=== PATIENT | male | born 1940 | race Caucasian/White ===

== ENCOUNTER 2018-03-09 18:36 | Inpatient (IN) ==
[2018-03-09] MEDS ORDERED: SODIUM CHLORIDE 0.9% 500 ML IV STA (19:09)
[2018-03-09 19:26] LABS: Basophils % 0.4 % (0.0-0.8); Eosinophils # 0.1 10*3/uL (0.0-0.87); Eosinophils % 1.3 % (0.00-10.9); Hematocrit 34.3 VOL% (42.0-52.0); Hemoglobin 10.5 GM/DL (14.0-18.0); Immature Granulocytes % 0.3 %; Immature Granulocytes Absolute 0.02 #; Mean Corpuscular HGB Conc 30.6 GM/DL (32-36); Mean Corpuscular Hemoglobin 28 PG (27-34); Mean Corpuscular Volume 90.3 FL (87-102); Mean Platelet Volume 10.5 FL (9.6-12.0); Neutrophils # 4.8 10*3/uL (1.4-7.4); Platelet Count 165 T/CUMM (130-400); Red Cell Distribution Width 13.5 % (9.3-17.3); White Blood Count 6.8 T/CUMM (4-12)
[2018-03-09 19:36] LABS: INR 2.4
[2018-03-09 19:37] LABS: PT Patient Result 26.1 SECS
[2018-03-09 19:57] LABS: Alanine Aminotransferase 25 U/L (16-61); Albumin 3.4 G/DL (3.4-5.0); Alkaline Phosphatase 70 U/L (45-117); Aspartate Amino Transferase 35 U/L (0-37); Blood Urea Nitrogen 22 MG/DL (7-18); Calcium 8.9 MG/DL (8.5-10.1); Glucose 102 MG/DL (74-106); Osmolality,Calculated 272.1 MOS/KG (273-304); Potassium 5.1 MMOL/L (3.5-5.1); Prolactin 8.3 NG/ML; Sodium 135 MMOL/L (136-145); Total Protein 8.1 G/DL (6.4-8.3); Troponin I 0.032 NG/ML (0.00-0.045)
[2018-03-09 20:12] LABS: Apearance,Urine Slightly Hazy (Clear); Bilirubin,Urine Negative (Negative); Blood, Urine Moderate mg/dL (Negative); Glucose,Urine (UA) Negative (Negative); Ketones,Urine Negative (Negative); Mucus,Urine Occasional /LPF (Occasional); Nitrite,Urine Negative (Negative); Protein,Urine 30 MG/DL; RBC,Urine 4 /HPF (0-4); Squamous Epithelial Cell,Urine Occasional /HPF (0-10); Urine Specific Gravity 1.025 (1.001-1.035); WBC,Urine 2 /HPF (0-6)
[2018-03-09 20:13] LABS: Urine Color Dark yellow (Yellow)
[2018-03-09 20:29] LABS: Sedimentation Rate-Westergren 76 MM/HR (0-20)
[2018-03-09] MEDS ORDERED: cefTRIAXone 1,000 MG in SYRINGE 1 EACH IV SCH (20:30)
[2018-03-09] MEDS: PIPERACILLIN/TAZOBACTAM 3,375 MG in SODIUM CHLORIDE 0.9% 100 ML IV SCH (20:48)
[2018-03-09] MEDS ORDERED: ONDANSETRON 4 MG/2 ML VIAL IV PRN (21:15)
[2018-03-09] MEDS ORDERED: ALBUTEROL 2.5 MG/3 ML NEB RESP TX PRN (21:15)
[2018-03-09] MEDS ORDERED: ACETAMINOPHEN 325 MG TABLET PO PRN (21:15)
[2018-03-09] MEDS: DIGOXIN 0.125 MG TABLET PO SCH (23:34)
[2018-03-09] MEDS: ATORVASTATIN 10 MG TABLET PO SCH (23:35)
[2018-03-10] MEDS: ALBUTEROL/IPRATROPIUM 3 ML NEB RESP TX SCH ×4 (00:36→19:02)
[2018-03-10] MEDS ORDERED: PIPERACILLIN/TAZOBACTAM 3,375 MG in SODIUM CHLORIDE 0.9% 100 ML IV SCH (04:30)
[2018-03-10] MEDS: PIPERACILLIN/TAZOBACTAM 3,375 MG in SODIUM CHLORIDE 0.9% 100 ML IV SCH ×3 (05:18→20:22)
[2018-03-10] MEDS: LEVOTHYROXINE 112 MCG TABLET PO SCH (05:18)
[2018-03-10 06:06] LABS: Basophils % 0.2 % (0.0-0.8); Eosinophils # 0.1 10*3/uL (0.0-0.87); Eosinophils % 1.8 % (0.00-10.9); Hematocrit 29.8 VOL% (42.0-52.0); Immature Granulocytes % 0.4 %; Immature Granulocytes Absolute 0.02 #; Lymphocytes # 0.8 10*3/uL (1.4-4.0); Mean Corpuscular HGB Conc 30.2 GM/DL (32-36); Mean Corpuscular Hemoglobin 27 PG (27-34); Mean Corpuscular Volume 89.8 FL (87-102); Mean Platelet Volume 10.2 FL (9.6-12.0); Monocytes # 0.8 10*3/uL (0.11-0.8); Neutrophils # 3.4 10*3/uL (1.4-7.4); Neutrophils % 65.6 % (38.7-73.9); Platelet Count 132 T/CUMM (130-400); Red Blood Count 3.32 MC/CUMM (3.8-5.5); Red Cell Distribution Width 13.5 % (9.3-17.3); White Blood Count 5.1 T/CUMM (4-12)
[2018-03-10 06:14] LABS: INR 2.1
[2018-03-10 06:21] LABS: PT Patient Result 22.7 SECS
[2018-03-10 06:28] LABS: Albumin 2.7 G/DL (3.4-5.0); Bilirubin,Total 2.1 MG/DL (0.2-1.0); Calcium 8.6 MG/DL (8.5-10.1); Osmolality,Calculated 275.8 MOS/KG (273-304)
[2018-03-10 06:36] LABS: Anisocytosis 2+; Lymphocytes 13 % (20-55); Macrocytosis 1+; Microcytosis Slight; Ovalocytes Few; Platelet Estimate Decreased; Segmented Neutrophils 73 % (50-85); Total Cells Counted 100
[2018-03-10] MEDS: PANTOPRAZOLE 40 MG TABLET PO SCH (08:23)
[2018-03-10] MEDS: FUROSEMIDE 40 MG TABLET PO SCH (08:23)
[2018-03-10] MEDS: ASPIRIN EC 81 MG TABLET PO SCH (08:23)
[2018-03-10] MEDS: METOPROLOL SUCCINATE XL 25 MG TABLET PO SCH ×2 (08:24→22:08)
[2018-03-10] MEDS: cefTRIAXone 1,000 MG in SYRINGE 1 EACH IV SCH ×2 (08:58→22:10)
[2018-03-10] MEDS ORDERED: MAGNESIUM HYDROXIDE SUSP 30 ML UDCUP PO PRN (13:13)
[2018-03-10] MEDS: POLYETHYLENE GLYCOL POWDER 17 GM PACK PO SCH ×3 (14:49→22:10)
[2018-03-10] MEDS: DOCUSATE SODIUM 100 MG CAPSULE PO SCH ×2 (14:49→22:09)
[2018-03-10] MEDS ORDERED: WARFARIN 2.5 MG TABLET PO SCH (20:00)
[2018-03-10] MEDS ORDERED: MULTIVITAMIN (CENTRUM) TABLET PO SCH (21:00)
[2018-03-10] MEDS: ATORVASTATIN 10 MG TABLET PO SCH (22:08)
[2018-03-10] MEDS: DIGOXIN 0.125 MG TABLET PO SCH (22:11)
[2018-03-11] MEDS: ALBUTEROL/IPRATROPIUM 3 ML NEB RESP TX SCH ×2 (01:40→08:32)
[2018-03-11] MEDS: PIPERACILLIN/TAZOBACTAM 3,375 MG in SODIUM CHLORIDE 0.9% 100 ML IV SCH (04:25)
[2018-03-11] MEDS: LEVOTHYROXINE 112 MCG TABLET PO SCH (05:47)
[2018-03-11 07:37] VITALS: BP 147/82
[2018-03-11] MEDS: METOPROLOL SUCCINATE XL 25 MG TABLET PO SCH (08:21)
[2018-03-11] MEDS: FUROSEMIDE 40 MG TABLET PO SCH (08:21)
[2018-03-11] MEDS: cefTRIAXone 1,000 MG in SYRINGE 1 EACH IV SCH (08:21)
[2018-03-11] MEDS: PANTOPRAZOLE 40 MG TABLET PO SCH (08:21)
[2018-03-11] MEDS: ASPIRIN EC 81 MG TABLET PO SCH (08:21)
[2018-03-11] MEDS: DOCUSATE SODIUM 100 MG CAPSULE PO SCH (08:21)
[2018-03-11] MEDS: POLYETHYLENE GLYCOL POWDER 17 GM PACK PO SCH (08:41)
[2018-03-11] MEDS ORDERED: WARFARIN 5 MG TABLET PO SCH (20:00)
[2018-03-11] MEDS ORDERED: AMOXICILLIN/CLAV 500 MG TABLET PO SCH (21:00)
== END 2018-03-11 10:40 | disposition home or self-care (01) | DRG 193 ==
LOC: EDUNIT# → EDBD → N.ED 18:36 → N.EDINP 21:15 → N.5E 21:40
PROVIDERS: ADMIT Hospitalist; ATTEND Hospitalist